=== PATIENT | male | born 1985 | race Caucasian/White ===

== ENCOUNTER 2017-08-29 17:35 | Emergency (ER) | payer BC ==
[2017-08-29] MEDS ORDERED: NS 0.9% 1000 ML* 1,000 ML IV ONE ×2 (19:31→20:44)
[2017-08-29] MEDS ORDERED: Pantoprazole IV* 40 MG IV ONE (20:44)
--- NOTE | 2017-08-29 21:33 | RAD ---
INDICATION: Right upper quadrant pain. COMPARISON: There are no prior studies available for comparison. TECHNIQUE: Multiple real-time images of the right upper quadrant were obtained. FINDINGS: The gallbladder appear normal. No gallbladder wall thickening or pericholecystic fluid is present. No intra or extrahepatic ductal distention is present. The common bile duct measured 0.4 cm in diameter. The liver is mildly enlarged and increased in echogenicity suggestive of fatty infiltration. No significant focal hepatic abnormality is seen. The pancreas is partially obscured by overlying bowel gas. The right kidney is normal in size without evidence for hydronephrosis. IMPRESSION: 1. NORMAL EXAMINATION OF THE GALLBLADDER. 2. MILD HEPATOMEGALY AND FINDINGS SUGGESTIVE OF FATTY INFILTRATION.
[2017-08-29 21:38] LABS: Hematocrit 46 % (42-52); Hemoglobin 16.1 g/dl (14.0-18.0); Mean Corpuscular HGB Conc 35 g/dl (31-36); Mean Corpuscular Hemoglobin 32 pg (27-31); Mean Corpuscular Volume 89 fL (80-94); Mean Platelet Volume 9 um3 (7.4-10.4); Red Blood Count 5.12 10^6/ul (4.0-5.4); Red Cell Distribution Width 13 % (10.5-15); White Blood Count 7.6 10^3/ul (3.5-10.8)
[2017-08-29 21:48] LABS: ALT 51 U/L (7-52); AST 41 U/L (13-39); Albumin 4.6 g/dL (3.2-5.2); Alkaline Phosphatase 49 U/L (34-104); Anion Gap 9 mmol/L (2-11); BUN/Creatinine Ratio 13.1 (8-20); Blood Urea Nitrogen 13 mg/dL (6-24); CO2 Carbon Dioxide 26 mmol/L (22-32); Calcium 9.3 mg/dL (8.6-10.3); Chloride 103 mmol/L (101-111); EGFR African American 111.3 (>60); EGFR Non-African American 86.5 (>60); Globulin 2.8 g/dL (2-4); Glucose 119 mg/dL (70-100); Lipase 12 U/L (11.0-82.0); Potassium 3.5 mmol/L (3.5-5.0); Sodium 138 mmol/L (133-145); Total Protein 7.4 g/dL (6.4-8.9)
--- NOTE | 2017-08-29 22:00 | ED ---
Nery Davenport SooYoung, scribed for Avelino Chung MD on 08/29/17 at 2044 . Abdominal Pain/Male - HPI Summary HPI Summary: A 32 y/o M presents to ED with c/o epigastric abd pain onset last week, and worsening five days ago. He states he ate worse and drank a lot five days ago for a celebration. Associated sx: acid reflux, decreased oral intake, diarrhea, distended abd. Denies: black stool, melena, hemesis, urinary changes. He was seen by his PCP earlier today who referred him to ED. Non-smoker, no drug use. No surgeries. Denies PMHx other than seasonal allergies. - History of Current Complaint Chief Complaint: EDAbdPain Stated Complaint: ABD PAIN Time Seen by Provider: 08/29/17 20:38 Hx Obtained From: Patient Onset/Duration: Gradual Onset, Lasting Weeks - approx 1 week, Still Present Timing: Constant Severity Initially: Moderate Severity Currently: Moderate Pain Intensity: 6 Pain Scale Used: 0-10 Numeric Location: Epigastric Associated Signs And Symptoms: Positive: Decreased Appetite, Nausea, Diarrhea, Other - pos: acid reflux, distended abd. Negative: Blood in Stool, Urinary Symptoms, Vomiting - neg: hemesis - Allergies/Home Medications Allergies/Adverse Reactions: Allergies Allergy/AdvReac Type Severity Reaction Status Date / Time No Known Allergies Allergy Verified 08/29/17 21:55 PMH/Surg Hx/FS Hx/Imm Hx Previously Healthy: Yes Respiratory History: Denies: Hx Chronic Obstructive Pulmonary Disease (COPD) EENT History: Reports: Hx Seasonal Allergies Infectious Disease History: Yes Infectious Disease History: Denies: Traveled Outside the [place] in Last 30 Days - Family History Family History: [place], [place] - Social History Occupation: Employed Full-time Lives: With Family Hx Substance Use: No Hx Tobacco Use: No Review of Systems Positive: Abdominal Pain, Diarrhea, Nausea, Other - pos: acid reflux, decreased oral intake, distended abd; neg: melena. Negative: Vomiting Negative: dysuria, frequency All Other Systems Reviewed And Are Negative: Yes Physical Exam Triage Information Reviewed: Yes Vital Signs On Initial Exam: Initial Vitals Temp Pulse Resp BP Pulse Ox 97.2 F 95 20 146/94 98 08/29/17 17:37 08/29/17 17:37 08/29/17 17:37 08/29/17 17:37 08/29/17 17:37 Appearance: Positive: Well-Appearing, No Pain Distress Skin: Positive: Warm, Skin Color Reflects Adequate Perfusion Head/Face: Positive: Normal Head/Face Inspection Eyes: Positive: EOMI, Conjunctiva Clear ENT: Positive: Normal ENT inspection Neck: Positive: Nontender Respiratory/Lung Sounds: Positive: Clear to Auscultation, Breath Sounds Present Cardiovascular: Positive: RRR. Negative: Murmur Abdomen Description: Positive: Other: - tender to palpate in the right upper quadrant of abdomen. Musculoskeletal: Positive: Strength/ROM Intact Neurological: Positive: Sensory/Motor Intact, Alert, Oriented to Person Place, Time, CN Intact II-III Psychiatric: Positive: Normal - [place] Coma Scale Best Eye Response: 4 - Spontaneous Best Motor Response: 6 - Obeys Commands Best Verbal Response: 5 - Oriented Diagnostics - Vital Signs Vital Signs Temp Pulse Resp BP Pulse Ox 08/29/17 20:30 97.8 F 78 16 159/98 97 08/29/17 17:37 97.2 F 95 20 146/94 98 - Laboratory Result Diagrams: 08/29/17 21:25 08/29/17 21:25 Lab Statement: Any lab studies that have been ordered have been reviewed, and results considered in the medical decision making process. - Ultrasound No standard instances Ultrasound Interpretation: Positive (See Comments) - Gallbladder U/S IMPRESSION : 1. NORMAL EXAMINATION OF THE GALLBLADDER. 2. MILD HEPATOMEGALY AND FINDINGS SUGGESTIVE OF FATTY INFILTRATION. ED physician has reviewed this radiology report and agrees. Ultrasound Interpretation Completed By: Radiologist Abdominal Pain Fem Course/Dx - Course Course Of Treatment: A 32 y/o M presents to ED with c/o epigastric abd pain onset last week, and worsening five days ago. He states he ate worse and drank a lot five days ago for a celebration. Associated sx: acid reflux, decreased oral intake, diarrhea, distended abd. Denies: black stool, melena, hemesis, urinary changes. He was seen by his PCP earlier today who referred him to ED. Non-smoker, no drug use. No surgeries. Denies PMHx other than seasonal allergies. Bloodwork is without significant abnormalities. Gallbladder U/S shows " 1.NORMAL EXAMINATION OF THE GALLBLADDER. 2. MILD HEPATOMEGALY AND FINDINGS SUGGESTIVE OF FATTY INFILTRATION." - Diagnoses Provider Diagnoses: Abdominal pain, Gastritis, Hypertension Discharge - Discharge Plan Condition: Good Disposition: HOME Prescriptions: Pantoprazole TAB (NF) [Protonix TAB (NF)] 40 mg PO DAILY #14 tab Patient Education Materials: Gastritis (ED), Diet for Stomach Ulcers and Gastritis (ED), Abdominal Pain (ED), Hypertension (ED) Referrals: Gem Everett MD [Primary Care Provider] - 1 Day Ji Garcia MD [Medical Doctor] - 1 Day The documentation as recorded by the Nery tran SooYoung accurately reflects the service I personally performed and the decisions made by me, Avelino Chung MD.
[2017-08-29 22:04] LABS: Alcohol < 10 mg/dL (<10)
[2017-08-29 23:34] VITALS: BP 129/87
== END 2017-08-29 23:33 | disposition home or self-care (01) ==
LOC: ED 17:35
DX: R10.13 Epigastric pain (principal); K29.70 Gastritis, unspecified, without bleeding; I10 Essential (primary) hypertension; R11.0 Nausea; R19.7 Diarrhea, unspecified
CPT/HCPCS: 36415; 76705; 80053; 80320; 83605; 83690; 85025; 86140; 96365; 99283; G0480

== ENCOUNTER 2017-08-30 22:10 | Emergency (ER) | payer BC ==
[2017-08-31 02:38] LABS: Hematocrit 44 % (42-52); Hemoglobin 15.6 g/dl (14.0-18.0); Mean Corpuscular HGB Conc 35 g/dl (31-36); Mean Corpuscular Hemoglobin 32 pg (27-31); Mean Corpuscular Volume 89 fL (80-94); Mean Platelet Volume 9 um3 (7.4-10.4); Red Blood Count 4.94 10^6/ul (4.0-5.4); Red Cell Distribution Width 13 % (10.5-15); White Blood Count 7.4 10^3/ul (3.5-10.8)
[2017-08-31 02:50] LABS: Albumin 4.6 g/dL (3.2-5.2); BUN/Creatinine Ratio 12.4 (8-20); Calcium 9.2 mg/dL (8.6-10.3); EGFR African American 125.8 (>60); EGFR Non-African American 97.8 (>60); Globulin 2.5 g/dL (2-4); Potassium 3.6 mmol/L (3.5-5.0); Total Bilirubin 0.7 mg/dL (0.2-1.0); Total Protein 7.1 g/dL (6.4-8.9)
--- NOTE | 2017-08-31 03:16 | ED ---
HPI Chest Pain - HPI Summary HPI Summary: 32 year old male with no PMH, no meds, recently seen last night in ER due to GERD/ upper abdomen/ chest pain type symptoms, patietnw as dx'd with indigestion after work up, given protonix, patient states stomach pain much improved after medication. THis AM had episode of substernal chest pain similiar to prior episodes but also with shortness of breath, clammy hands, cool hands, lightheadedness, L arm/ jaw tightness. Patient beleives he was having a anxiety attack, likely brought on by lack of sleep/ worry about stomach complaints but is concerned about cardiac cause. no current sypmtoms other than ? cool extremities. no prior episodes - History of Current Complaint Chief Complaint: EDGeneral Time Seen by Provider: 08/31/17 01:09 Hx Obtained From: Patient, Family/Inbound Call Center Representative - Onset/Duration: Started Hours Ago Timing: Lasting Minutes Initial Severity: Severe Current Severity: Moderate Pain Intensity: 4 Pain Scale Used: 0-10 Numeric - Allergy/Home Medications Allergies/Adverse Reactions: Allergies Allergy/AdvReac Type Severity Reaction Status Date / Time No Known Allergies Allergy Verified 08/29/17 21:55 PMH/Surg Hx/FS Hx/Imm Hx Previously Healthy: Yes Respiratory History: Denies: Hx Chronic Obstructive Pulmonary Disease (COPD) Infectious Disease History: No Infectious Disease History: Denies: Traveled Outside the [place] in Last 30 Days - Family History Family History: [place], [place] - Social History Alcohol Use: Weekly Hx Substance Use: No Substance Use Type: Reports: None Hx Tobacco Use: No Smoking Status (MU): Never Smoked Tobacco Review of Systems Positive: Chills Positive: Palpitations, Chest Pain Positive: Shortness Of Breath Positive: Abdominal Pain Positive: Weakness Positive: Anxious All Other Systems Reviewed And Are Negative: Yes Physical Exam Triage Information Reviewed: Yes Vital Signs On Initial Exam: Initial Vitals Temp Pulse Resp BP Pulse Ox 97.9 F 72 20 144/91 98 08/30/17 22:20 08/30/17 22:20 08/30/17 22:20 08/30/17 22:20 08/30/17 22:20 Vital Signs Reviewed: Yes Appearance: Positive: Well-Appearing, No Pain Distress, Well-Nourished Skin: Positive: Warm, Skin Color Reflects Adequate Perfusion Head/Face: Positive: Normal Head/Face Inspection Eyes: Positive: Normal, EOMI, NILA, Conjunctiva Clear ENT: Positive: Hearing grossly normal, Pharynx normal, Other - tongue movements equal in al directions, no defects in smile, frown, closing eyes, facial movements symmetrical. sensation grossly intact Neck: Positive: Supple, Nontender, No Lymphadenopathy Respiratory/Lung Sounds: Positive: Clear to Auscultation, Breath Sounds Present Cardiovascular: Positive: Normal, RRR, Pulses are Symmetrical in both Upper and Lower Extremities - rad, , PT, DP, S1, S2. Negative: Murmur, Rub, Tachycardia Abdomen Description: Positive: Nontender, No Organomegaly, Soft. Negative: CVA Tenderness (R), CVA Tenderness (L), McBur[place]'s Point Tenderness, Peritoneal Signs, Pulsatile Mass Bowel Sounds: Positive: Present Musculoskeletal: Positive: Normal, Strength/ROM Intact - grossly UE/ LE, normal ambulation Neurological: Positive: Normal, Sensory/Motor Intact, Alert, Oriented to Person Place, Time, CN Intact II-III, Normal Gait, Facial Symmetry, Speech Normal. Negative: Facial Droop, Slurred Speech, Finger to Nose AVPU Assessment: Alert - [place] Coma Scale Best Eye Response: 4 - Spontaneous Best Motor Response: 6 - Obeys Commands Best Verbal Response: 5 - Oriented Coma Scale Total: 15 Diagnostics - Vital Signs Vital Signs Temp Pulse Resp BP Pulse Ox 08/30/17 23:55 97.0 F 56 16 142/85 100 08/30/17 22:20 97.9 F 72 20 144/91 98 - Laboratory Lab Results: Lab Results 08/31/17 08/31/17 Range/Units 02:15 02:15 WBC 7.4 (3.5-10.8) 10^3/ul RBC 4.94 (4.0-5.4) 10^6/ul Hgb 15.6 (14.0-18.0) g/dl Hct 44 (42-52) % MCV 89 (80-94) fL MCH 32 H (27-31) pg MCHC 35 (31-36) g/dl RDW 13 (10.5-15) % Plt Count 209 (150-450) 10^3/ul MPV 9 (7.4-10.4) um3 Neut % (Auto) 65.2 (38-83) % Lymph % (Auto) 25.4 (25-47) % [place] % (Auto) 7.3 (1-9) % Eos % (Auto) 1.4 (0-6) % Baso % (Auto) 0.7 (0-2) % Absolute Neuts (auto) 4.9 (1.5-7.7) 10^3/ul Absolute Lymphs (auto) 1.9 (1.0-4.8) 10^3/ul Absolute Monos (auto) 0.5 (0-0.8) 10^3/ul Absolute Eos (auto) 0.1 (0-0.6) 10^3/ul Absolute Basos (auto) 0.1 (0-0.2) 10^3/ul Absolute Nucleated RBC 0 10^3/ul Nucleated RBC % 0 Sodium 137 (133-145) mmol/L Potassium 3.6 (3.5-5.0) mmol/L Chloride 106 (101-111) mmol/L Carbon Dioxide 24 (22-32) mmol/L Anion Gap 7 (2-11) mmol/L BUN 11 (6-24) mg/dL Creatinine 0.89 (0.67-1.17) mg/dL Est GFR ( Amer) 125.8 (>60) Est GFR (Non-Af Amer) 97.8 (>60) BUN/Creatinine Ratio 12.4 (8-20) Glucose 105 H (70-100) mg/dL Calcium 9.2 (8.6-10.3) mg/dL Total Bilirubin 0.70 (0.2-1.0) mg/dL AST 33 (13-39) U/L ALT 43 (7-52) U/L Alkaline Phosphatase 45 (34-104) U/L Troponin I 0.00 (<0.04) ng/mL Total Protein 7.1 (6.4-8.9) g/dL Albumin 4.6 (3.2-5.2) g/dL Globulin 2.5 (2-4) g/dL Albumin/Globulin Ratio 1.8 (1-3) TSH Pending Result Diagrams: 08/31/17 02:15 08/31/17 02:15 Lab Statement: Any lab studies that have been ordered have been reviewed, and results considered in the medical decision making process. Chest Pain Course/Dx - Course Course Of Treatment: Troponin neg, repeat troponin not warrented due to >6 hours from pain, case discussed with Dr. Roque. EKG WNL, neg blood work, patient gievn instructions to follow up if symptoms returned, OK for D/C home neg stroke. cardiac work up - Chest Pain Differential Diagnosis/HQI/PQRI: Acute CA, Angina, Aortic Aneurysm, Chest Wall - Diagnoses Provider Diagnoses: Indigestion Discharge - Discharge Plan Condition: Good Disposition: HOME Patient Education Materials: Chest Pain (ED) Referrals: Gem Everett MD [Primary Care Provider] - Additional Instructions: - Follow up with primary physician within 1-2 weeks for re-evaluation - REturn to ER with increased chest pain, shortness of breath - Continue taking protonix
[2017-08-31 03:23] VITALS: BP 136/82
[2017-08-31 03:27] LABS: TSH (Thyroid Stimulating Horm) 5.32 mcIU/mL (0.34-5.60)
== END 2017-08-31 03:21 | disposition home or self-care (01) ==
LOC: ED 22:10
DX: K30 Functional dyspepsia (principal); K21.9 Gastro-esophageal reflux disease without esophagitis; R00.2 Palpitations; R07.9 Chest pain, unspecified; R06.02 Shortness of breath; R53.1 Weakness; F41.9 Anxiety disorder, unspecified
CPT/HCPCS: 36415; 80053; 84443; 84484; 85025; 93005; 99284